=== PATIENT | female | born 1950 | race Caucasian/White ===

== ENCOUNTER → 2018-02-08 | Outpatient (CLI) | payer OTHER ==
[~2018-02-08] MED LIST: CALCIUM; LEXAPRO20 MG; SYNTHROID25 MCG; VITAMIN D1000 UNI1; VITORIN; XANAX 0.25 MG0.25 MG PO; ZOFRAN 4 MG ORAL4 MG PO
== END ==
LOC: M.RAD 09:55
DX: Z12.31 Encounter for screening mammogram for malignant neoplasm of breast (principal)